=== PATIENT | male | born 1955 | race African-American/Black ===

== ENCOUNTER 2019-08-12 13:05 | Inpatient (IN) | payer MEDICAID ==
[~2019-08-12] VITALS: Ht 182.9 cm; Wt 101.6 kg
--- NOTE | 2019-08-12 13:10 | NUR ---
ED Nurse Note: Pt came into the ER from Home with a complaint of feeling dizzy and light headed. Patient states he was carrying groceries from the grocery store and started feeling the dizziness. Patient complains of a pain score of 10/10. Patient is AAOx4, vital signs are stable and patient is on room air. Patient placed on the cardiac monitors. CONRAD Davila is bedside.
--- NOTE | 2019-08-12 13:17 | NUR ---
ED Nurse Note: EKG done bedside.
--- NOTE | 2019-08-12 13:19 | NUR ---
ED Nurse Note: xray at bedside.
--- NOTE | 2019-08-12 13:31 | Emergency Room Report ---
History of Present Illness General Chief Complaint: Generalized Weakness Source: Patient Present Illness HPI 63-year-old male history of hypertension presents with generalized weakness, syncope and collapse, no known aggravating alleviating factors severity is moderate, constant lasting a few minutes, patient was at the store shopping, denies any chest pain shortness of breath, patient felt like a curtain was overlapping his eyes, he felt nauseated, he had a lie down, and passed out for a moment no fevers no chills no chest pain no shortness of breath no dyspnea on exertion patient presents for evaluation via EMS Allergies: Coded Allergies: No Known Allergies (Unverified , 08/12/19) Patient History Past Medical History: see triage record Reviewed Nursing Documentation: PMH: Agreed; PSxH: Agreed Nursing Documentation-PMH Past Medical History: No History, Except For Hx Cardiac Problems: Yes - high cholesterol Review of Systems All Other Systems: negative except mentioned in HPI Physical Exam Vital Signs Date Time Temp Pulse Resp B/P (MAP) Pulse Ox O2 Delivery O2 Flow Rate FiO2 08/12/19 13:01 110 16 102/78 (86) 99 Room Air Sp02 EP Interpretation: reviewed, normal General Appearance: well appearing, no apparent distress, alert Head: normocephalic, atraumatic Eyes: bilateral eye PERRL, bilateral eye EOMI ENT: uvula midline, dry mucus membranes Neck: supple, thyroid normal, supple/symm/no masses Respiratory: lungs clear, no respiratory distress, no retraction, no accessory muscle use Cardiovascular #1: normal peripheral pulses, regular rate, rhythm, no edema, no gallop, no murmur Gastrointestinal: non tender, soft, no guarding, no rebound Musculoskeletal: normal inspection Neurologic: alert, oriented x3 Psychiatric: mood/affect normal Skin: no rash, warm/dry Medical Decision Making Diagnostic Impression: Primary Impression: Episode of generalized weakness Additional Impressions: Syncope and collapse Dehydration ER Course 63-year-old male presents with syncope and collapse, differential diagnosis includes ACS, vasovagal syncope, pneumonia Chest x-ray negative, EKG negative, patient shows levels of dehydration Fluid hydration given, patient will be admitted to the hospital for syncope work -up Patient admitted to Dr. Wolf Laboratory Tests Test 08/12/19 13:20 White Blood Count 12.1 K/UL (4.8-10.8) H Red Blood Count 5.02 M/UL (4.70-6.10) Hemoglobin 15.2 G/DL (14.2-18.0) Hematocrit 46.0 % (42.0-52.0) Mean Corpuscular Volume 92 FL (80-99) Mean Corpuscular Hemoglobin 30.4 PG (27.0-31.0) Mean Corpuscular Hemoglobin Concent 33.1 G/DL (32.0-36.0) Red Cell Distribution Width 10.4 % (11.6-14.8) L Platelet Count 375 K/UL (150-450) Mean Platelet Volume 6.2 FL (6.5-10.1) L Neutrophils (%) (Auto) 78.8 % (45.0-75.0) H Lymphocytes (%) (Auto) 13.9 % (20.0-45.0) L Monocytes (%) (Auto) 6.4 % (1.0-10.0) Eosinophils (%) (Auto) 0.1 % (0.0-3.0) Basophils (%) (Auto) 0.8 % (0.0-2.0) Sodium Level 140 MMOL/L (136-145) Potassium Level 3.3 MMOL/L (3.5-5.1) L Chloride Level 101 MMOL/L (98-107) Carbon Dioxide Level 24 MMOL/L (21-32) Anion Gap 15 mmol/L (5-15) Blood Urea Nitrogen 10 mg/dL (7-18) Creatinine 2.0 MG/DL (0.55-1.30) H Estimate Glomerular Filtration Rate 41.0 mL/min (>60) Glucose Level 198 MG/DL (74-106) H Calcium Level 9.3 MG/DL (8.5-10.1) Phosphorus Level 2.7 MG/DL (2.5-4.9) Magnesium Level 2.2 MG/DL (1.8-2.4) Total Bilirubin 0.8 MG/DL (0.2-1.0) Aspartate Amino Transferase (AST) 17 U/L (15-37) Alanine Aminotransferase (ALT) 13 U/L (12-78) Alkaline Phosphatase 88 U/L (46-116) Creatine Kinase MB < 0.5 NG/ML (0.0-3.6) Troponin I 0.000 ng/mL (0.000-0.056) Pro-B-Type Natriuretic Peptide 45 pg/mL (0-125) Total Protein 8.3 G/DL (6.4-8.2) H Albumin 3.6 G/DL (3.4-5.0) Globulin 4.7 g/dL Albumin/Globulin Ratio 0.8 (1.0-2.7) L Lipase 81 U/L (73-393) EKG Diagnostic Results EKG Time: 13:15 EP Interpretation: NSR, rate 93, QTc 435, no acute ST elevations, normal axis Rhythm Strip Diag. Results Rhythm Strip Time: 13:18 EP Interpretation: yes Rate: 92 Rhythm: NSR, no PVC's, no ectopy Chest X-Ray Diagnostic Results Chest X-Ray Diagnostic Results : Chest X-Ray Ordered: Yes # of Views/Limited/Complete: 1 View Indication: Other - Syncope EP Interpretation: Yes Interpretation: no consolidation, no effusion, no pneumothorax, no acute cardiopulmonary disease Impression: No acute disease Electronically Signed by: Ronald Davila MD Last Vital Signs Date Time Temp Pulse Resp B/P (MAP) Pulse Ox O2 Delivery O2 Flow Rate FiO2 08/12/19 13:10 88 20 Room Air 08/12/19 13:01 102/78 (86) 99 Disposition: ADMITTED INPATIENT Condition: Stable Scripts No Active Prescriptions or Reported Meds Ronald Davila MD Aug 12, 2019 13:31
[2019-08-12 13:44] LABS: BASOPHILS % (AUTO) 0.8 % (0.0-2.0); EOSINOPHILS % (AUTO) 0.1 % (0.0-3.0); HEMOGLOBIN 15.2 G/DL (14.2-18.0); LYMPHOCYTES % (AUTO) 13.9 % (20.0-45.0); MEAN CORPUSCULAR VOLUME 92 FL (80-99); MONOCYTES % (AUTO) 6.4 % (1.0-10.0); NEUTROPHILS % (AUTO) 78.8 % (45.0-75.0); PLATELET COUNT 375 K/UL (150-450); RED BLOOD COUNT 5.02 M/UL (4.70-6.10); RED CELL DISTRIBUTION WIDTH 10.4 % (11.6-14.8); WHITE BLOOD COUNT 12.1 K/UL (4.8-10.8)
[2019-08-12 13:50] VITALS: BP 129/67
[2019-08-12 14:01] LABS: ANION GAP 15 mmol/L (5-15); BLOOD UREA NITROGEN 10 mg/dL (7-18); CALCIUM 9.3 MG/DL (8.5-10.1); CARBON DIOXIDE 24 MMOL/L (21-32); CHLORIDE 101 MMOL/L (98-107); POTASSIUM 3.3 MMOL/L (3.5-5.1); SODIUM 140 MMOL/L (136-145)
[2019-08-12 14:13] LABS: ALANINE AMINOTRANSFERASE 13 U/L (12-78); ALBUMIN 3.6 G/DL (3.4-5.0); ALBUMIN/GLOBULIN RATIO 0.8 (1.0-2.7); ALKALINE PHOSPHATASE 88 U/L (46-116); ASPARTATE AMINO TRANSFERASE 17 U/L (15-37); BILIRUBIN,TOTAL 0.8 MG/DL (0.2-1.0); CKMB < 0.5 NG/ML (0.0-3.6); PHOSPHORUS 2.7 MG/DL (2.5-4.9)
--- NOTE | 2019-08-12 14:26 | NUR ---
ED Nurse Note: Called Telemetry and spoke to Sunday DON and gave report for continuity of care.
[2019-08-12 15:20] VITALS: BP 139/68
--- NOTE | 2019-08-12 15:55 | NUR ---
ED Nurse Note: Patient transferred to telemetry with patient belongings. Patient Aox4, vital signs stable on room air no respiratory distress noted. endorsed to ARIAN Brand for continuity of care. Belongings list reviewed with patient and ARIAN Brand.
--- NOTE | 2019-08-12 16:28 | NUR ---
NURSE NOTES: REPORT RECEIVED FROM ARIAN WISE. PATIENT ARRIVED TO THE FLOOR AND PLACED ON SAMPLE EXAMINER. PATIENT VITALS STABLE, BP 130/57, 59ITH327, HR 90, TEMP 98.0 RESPIRATIONS 16. BELONGINGS LIST SIGNED BY PATIENT. PATIENT IS ALERT AND ORIENTED AND ABLE TO MAKE NEEDS KNOWN. IV SITES ARE CLEAN DRY AND INTACT, SALINE LOCKED. BED IN THE LOW AND LOCKED POSITION. PATIENT ORIENTED TO THE ROOM AND CALL LIGHT. WILL CONTINUE TO MONITOR.
--- NOTE | 2019-08-12 16:42 | History & Physical ---
History and Physical History & Physicial History and Physical HPI 63-year-old male history of hypertension presents with generalized weakness, syncope and collapse, no known aggravating alleviating factors severity is moderate, constant lasting a few minutes, patient was at the store shopping, denies any chest pain shortness of breath, he felt nauseated, he had a lie down , and passed out for a moment no fevers no chills no chest pain no shortness of breath no dyspnea on exertion. Note to be dehydrated in the ED Allergies: No Known Allergies (Unverified , 08/12/19) Past Medical History: Hypertension, Hyperlipidemia All Other Systems: negative except mentioned in HPI Physical Exam Vital Signs Noted Date Time Temp Pulse Resp B/P (MAP) Pulse Ox O2 Delivery O2 Flow Rate FiO2 08/12/19 13:01 110 16 102/78 (86) 99 Room Air General Appearance: well appearing, no apparent distress, alert Head: normocephalic, atraumatic Eyes: bilateral eye PERRL, bilateral eye EOMI ENT: uvula midline, dryish mucus membranes Neck: supple, thyroid normal, supple/symm/no masses Respiratory: lungs clear, no respiratory distress, no retraction, no accessory muscle use Cardiovascular: normal peripheral pulses, regular rate, HS1, HS2, normal,rhythm , no edema, no gallop, no murmur Gastrointestinal: non tender, soft, no guarding, no rebound Musculoskeletal: normal inspection Neurologic: alert, oriented x3 Psychiatric: mood/affect normal Skin: no rash, warm/dry Impression: Episode of generalized weakness Syncope and collapse, Chest x-ray negative, EKG negative Dehydration Hypertension Plan Cardiology Consult IVF Echocardiogram [employer] Medications Trend labs LE Dupplex VQ scan UA Laboratory Tests Test 08/12/19 13:20 White Blood Count 12.1 K/UL (4.8-10.8) H Red Blood Count 5.02 M/UL (4.70-6.10) Hemoglobin 15.2 G/DL (14.2-18.0) Hematocrit 46.0 % (42.0-52.0) Mean Corpuscular Volume 92 FL (80-99) Mean Corpuscular Hemoglobin 30.4 PG (27.0-31.0) Mean Corpuscular Hemoglobin Concent 33.1 G/DL (32.0-36.0) Red Cell Distribution Width 10.4 % (11.6-14.8) L Platelet Count 375 K/UL (150-450) Mean Platelet Volume 6.2 FL (6.5-10.1) L Neutrophils (%) (Auto) 78.8 % (45.0-75.0) H Lymphocytes (%) (Auto) 13.9 % (20.0-45.0) L Monocytes (%) (Auto) 6.4 % (1.0-10.0) Eosinophils (%) (Auto) 0.1 % (0.0-3.0) Basophils (%) (Auto) 0.8 % (0.0-2.0) Sodium Level 140 MMOL/L (136-145) Potassium Level 3.3 MMOL/L (3.5-5.1) L Chloride Level 101 MMOL/L (98-107) Carbon Dioxide Level 24 MMOL/L (21-32) Anion Gap 15 mmol/L (5-15) Blood Urea Nitrogen 10 mg/dL (7-18) Creatinine 2.0 MG/DL (0.55-1.30) H Estimate Glomerular Filtration Rate 41.0 mL/min (>60) Glucose Level 198 MG/DL (74-106) H Calcium Level 9.3 MG/DL (8.5-10.1) Phosphorus Level 2.7 MG/DL (2.5-4.9) Magnesium Level 2.2 MG/DL (1.8-2.4) Total Bilirubin 0.8 MG/DL (0.2-1.0) Aspartate Amino Transferase (AST) 17 U/L (15-37) Alanine Aminotransferase (ALT) 13 U/L (12-78) Alkaline Phosphatase 88 U/L (46-116) Creatine Kinase MB < 0.5 NG/ML (0.0-3.6) Troponin I 0.000 ng/mL (0.000-0.056) Pro-B-Type Natriuretic Peptide 45 pg/mL (0-125) Total Protein 8.3 G/DL (6.4-8.2) H Albumin 3.6 G/DL (3.4-5.0) Globulin 4.7 g/dL Albumin/Globulin Ratio 0.8 (1.0-2.7) L Lipase 81 U/L (73-393) EKG: NSR, rate 93, QTc 435, no acute ST elevations, normal axis Chest X-Ray: no consolidation, no effusion, no pneumothorax, no acute cardiopulmonary disease David Farias MD Aug 12, 2019 16:42
[2019-08-12] MEDS ORDERED: HydrALAZINE 25mg tab ORAL PRN (16:45)
[2019-08-12] MEDS ORDERED: Nitroglycerin Subl 0.4mg tab SL PRN (16:45)
[2019-08-12] MEDS ORDERED: Albuterol/Ipratropium 3ml neb HHN PRN (18:45)
--- NOTE | 2019-08-12 19:33 | NUR ---
HAND-OFF: Report given to ARIAN HUGHES.
--- NOTE | 2019-08-12 19:34 | NUR ---
NURSE NOTES: PATIENT IS ALERT AND ORIENTED AND ABLE TO MAKE NEEDS KNOWN. IV SITE is CLEAN DRY AND INTACT, SALINE LOCKED. BED IN THE LOW AND LOCKED POSITION. CALL LIGHT within reach. WILL CONTINUE TO MONITOR.
[2019-08-12 20:00] VITALS: BP 136/80
[2019-08-12] MEDS: Heparin 5000 units/ml inj SUBQ SCH (21:55)
--- NOTE | 2019-08-12 22:17 | Diagnostic Imaging Report ---
Indication: Chest pain Technique: A ventilation/perfusion scan was performed. Ventilation was performed utilizing 40 mCi of Technetium 99m-DTPA. Perfusion was performed with 5 mCi of technetium 99m-MAA injected intravenously. Multiple side by side projections obtained. Findings: Ventilation is mildly heterogeneous. No significant defects are identified. Perfusion is mildly heterogeneous. No significant defects are identified. No mismatched defects seen. Impression: Low probability for pulmonary embolus Interpretation of findings are based on PIOPED II marisa (2006).
[2019-08-12 22:25] LABS: APPEARANCE,URINE CLEAR; BILIRUBIN, URINE NEGATIVE (NEGATIVE); GLUCOSE, URINE (UA) NEGATIVE (NEGATIVE); KETONES,URINE 3+ (NEGATIVE); LEUKOCYTE ESTERASE ,URINE NEGATIVE (NEGATIVE); NITRITE,URINE NEGATIVE (NEGATIVE); PH,URINE 6 (4.5-8.0); PROTEIN,URINE 1+ (NEGATIVE); UROBILINOGEN,URINE 4 MG/DL (0.0-1.0)
[2019-08-12 22:31] LABS: COLOR,URINE BROWN
--- NOTE | 2019-08-12 23:45 | Consultation ---
DATE OF CONSULTATION: 08/12/2019 CARDIOLOGY CONSULTATION CONSULTING PHYSICIAN: David Mai M.D. REASON FOR CONSULTATION: Syncope. HISTORY OF PRESENT ILLNESS: This 63-year-old male presented to the emergency room with weakness and as described syncopal episode. He has been weak and lightheaded. He was apparently shopping at a store when this happened. He suddenly felt nauseated, had to lie down and momentarily passed out. He did not fall or hurt himself. When he awakened, he did not have any associated findings, memory loss or confusion. He was transferred to the emergency room and was admitted to the hospital for further evaluation. PAST MEDICAL HISTORY: Hypertension and hyperlipidemia. ALLERGIES: None. FAMILY HISTORY: Noncontributory. SOCIAL HISTORY: Negative for smoking or alcohol use. REVIEW OF SYSTEMS: Otherwise unremarkable. PHYSICAL EXAMINATION: VITAL SIGNS: Blood pressure 102/78, pulse 110, respirations 16. HEENT: Conjunctivae pink. Fundi benign. Oropharynx clear. Mucous membranes dry. NECK: Supple. LUNGS: Clear. CARDIAC: Regular. Normal S1, S2 with no murmur, rub, or gallop. ABDOMEN: Soft. EXTREMITIES: No edema. LABORATORY DATA: White count 12, hemoglobin 15. Sodium 140, potassium 3.3, bicarb 24, BUN 10, creatinine 2.0. Glucose 198. Albumin 3.6. EKG, sinus rhythm with no acute abnormalities. Chest x-ray with no acute process. IMPRESSION: 1. Orthostatic syncope. 2. Hypokalemia. 3. Hypovolemia. 4. Elevated creatinine, consider acute versus acute on chronic kidney disease. 5. Hyperglycemia, consider diabetes mellitus. PLAN: 1. Cardiac monitoring. 2. Hydration. 3. Echocardiogram. 4. Hemoglobin A1c level. 5. Thyroid panel. 6. Monitor orthostatics. 7. Follow up renal function. 8. Follow up troponin level. David Mai M.D. DR: NOBLE JOB#: [id number] CC:
[2019-08-13 00:27] VITALS: BP 135/84
[2019-08-13 04:00] VITALS: BP 127/71
--- NOTE | 2019-08-13 07:09 | NUR ---
HAND-OFF: Report given to ARIAN Mcdowell.
[2019-08-13 07:26] LABS: BASOPHILS % (AUTO) 0.6 % (0.0-2.0); EOSINOPHILS % (AUTO) 0.2 % (0.0-3.0); HEMATOCRIT 35.6 % (42.0-52.0); LYMPHOCYTES % (AUTO) 17.4 % (20.0-45.0); MEAN CORPUSCULAR VOLUME 93 FL (80-99); MONOCYTES % (AUTO) 7.3 % (1.0-10.0); NEUTROPHILS % (AUTO) 74.5 % (45.0-75.0); PLATELET COUNT 292 K/UL (150-450); RED BLOOD COUNT 3.84 M/UL (4.70-6.10); RED CELL DISTRIBUTION WIDTH 10.7 % (11.6-14.8); WHITE BLOOD COUNT 8.9 K/UL (4.8-10.8)
--- NOTE | 2019-08-13 07:41 | NUR ---
NURSE NOTES: Patient received from Dahlia. Patient stable eating breakfast in bed. No complaints of pain no s/sx of distress. RR even and unlabored on RA. Side rails up x2, call light within reach, bed low and locked. Will continue to monitor.
[2019-08-13 08:00] VITALS: BP 135/79
[2019-08-13 08:18] LABS: ANION GAP 10 mmol/L (5-15); BLOOD UREA NITROGEN 5 mg/dL (7-18); CALCIUM 8.2 MG/DL (8.5-10.1); CARBON DIOXIDE 23 MMOL/L (21-32); CHLORIDE 107 MMOL/L (98-107); CREATININE 1.1 MG/DL (0.55-1.30); POTASSIUM 3.4 MMOL/L (3.5-5.1); SODIUM 140 MMOL/L (136-145)
[2019-08-13 08:24] LABS: ALANINE AMINOTRANSFERASE 11 U/L (12-78); ALBUMIN 2.8 G/DL (3.4-5.0); ASPARTATE AMINO TRANSFERASE 12 U/L (15-37); BILIRUBIN,DIRECT 0.1 MG/DL (0.0-0.3); BILIRUBIN,TOTAL 0.5 MG/DL (0.2-1.0)
--- NOTE | 2019-08-13 08:39 | General Progress Note ---
Assessment/Plan Assessment/Plan: Impression: Episode of generalized weakness Syncope and collapse, Chest x-ray negative, EKG negative Dehydration Hypertension VQ negative Plan Cardiology Consult hydrate Echocardiogram monitor labs await clearance impression, plan, and exam edited and reviewed in detail care discussed with RN Subjective Allergies: Coded Allergies: PENICILLINS (Verified Allergy, Unknown, 08/12/19) PER PATIENT STATEMENT Pork (Verified Allergy, Unknown, 08/12/19) PER PATIENT STATEMENT SHELLFISH DERIVED (Verified Allergy, Unknown, 08/12/19) PER PATIENT STATEMENT [id number] REDUCTASE INHIBITOR (Verified Allergy, Unknown, 08/12/19) PER PATIENT STATEMENT Subjective no cp or sob care reviewed overnight Objective Last 24 Hour Vital Signs Date Time Temp Pulse Resp B/P (MAP) Pulse Ox O2 Delivery O2 Flow Rate FiO2 08/13/19 08:24 88 18 97 Room Air 21 08/13/19 08:03 Room Air 08/13/19 08:00 99.0 91 20 135/79 (97) 97 08/13/19 04:00 98.7 84 17 127/71 (89) 98 08/13/19 04:00 79 08/13/19 00:27 98.2 88 18 135/84 (101) 97 08/13/19 00:00 84 08/12/19 21:00 Room Air 08/12/19 20:00 79 08/12/19 20:00 98.4 90 17 136/80 (98) 97 08/12/19 18:28 Room Air 08/12/19 15:55 97.8 78 20 139/68 100 Room Air 08/12/19 15:20 97.8 73 22 139/68 100 Room Air 08/12/19 13:50 97.2 78 18 129/67 100 Room Air 08/12/19 13:10 88 20 Room Air 08/12/19 13:01 110 16 102/78 (86) 99 Room Air Intake and Output 08/12/19 08/13/19 18:59 06:59 Intake Total 2000 ml 360 ml Balance 2000 ml 360 ml Intake Oral 360 ml IV Total 2000 ml # Voids 1 4 # Bowel Movements 1 Laboratory Tests 08/12/19 13:20: White Blood Count 12.1H, Red Blood Count 5.02, Hemoglobin 15.2, Hematocrit 46.0 , Mean Corpuscular Volume 92, Mean Corpuscular Hemoglobin 30.4, Mean Corpuscular Hemoglobin Concent 33.1, Red Cell Distribution Width 10.4L, Platelet Count 375, Mean Platelet Volume 6.2L, Neutrophils (%) (Auto) 78.8H, Lymphocytes (%) (Auto) 13.9L, Monocytes (%) (Auto) 6.4, Eosinophils (%) (Auto) 0.1, Basophils (%) (Auto) 0.8, Sodium Level 140, Potassium Level 3.3L, Chloride Level 101, Carbon Dioxide Level 24, Anion Gap 15, Blood Urea Nitrogen 10, Creatinine 2.0H, Estimat Glomerular Filtration Rate 41.0, Glucose Level 198H, Calcium Level 9.3, Phosphorus Level 2.7, Magnesium Level 2.2, Total Bilirubin 0.8, Aspartate Amino Transf (AST/SGOT) 17, Alanine Aminotransferase (ALT/SGPT) 13, Alkaline Phosphatase 88, Creatine Kinase MB < 0.5, Troponin I 0.000, Pro-B- Type Natriuretic Peptide 45, Total Protein 8.3H, Albumin 3.6, Globulin 4.7, Albumin/Globulin Ratio 0.8L, Lipase 81 08/12/19 19:30: Troponin I 0.000 08/12/19 21:20: Urine Color Brown, Urine Appearance Clear, Urine pH 6, Urine Specific [place] 1.010, Urine Protein 1+H, Urine Glucose (UA) Negative, Urine Ketones 3+H, Urine Blood 1+H, Urine Nitrite Negative, Urine Bilirubin Negative, Urine Urobilinogen 4H, Urine Leukocyte Esterase Negative, Urine RBC 2-4H, Urine WBC 0-2, Urine Squamous Epithelial Cells None, Urine Bacteria Few, Urine Fine Granular Casts 0- 2H 08/13/19 06:08: White Blood Count 8.9, Red Blood Count 3.84L, Hemoglobin 12.0L, Hematocrit 35.6L , Mean Corpuscular Volume 93, Mean Corpuscular Hemoglobin 31.3H, Mean Corpuscular Hemoglobin Concent 33.8, Red Cell Distribution Width 10.7L, Platelet Count 292, Mean Platelet Volume 5.9L, Neutrophils (%) (Auto) 74.5, Lymphocytes (%) (Auto) 17.4L, Monocytes (%) (Auto) 7.3, Eosinophils (%) (Auto) 0.2, Basophils (%) (Auto) 0.6, Sodium Level 140, Potassium Level 3.4L, Chloride Level 107, Carbon Dioxide Level 23, Anion Gap 10, Blood Urea Nitrogen 5L, Creatinine 1.1, Estimat Glomerular Filtration Rate > 60, Glucose Level 94#, Calcium Level 8.2L, Total Bilirubin 0.5, Aspartate Amino Transf (AST/SGOT) 12L, Alanine Aminotransferase (ALT/SGPT) 11L, Alkaline Phosphatase [Pending], Troponin I 0.009, Total Protein 6.1L, Albumin 2.8L, Direct Bilirubin 0.1, Thyroid Stimulating Hormone (TSH) 0.896 Height (Feet): 6 Weight (Pounds): 224 Objective WDWN NAD clear breath sounds bilaterally without rhonchi or wheeze [id number] without MRG NABS nontender no HSM no CCE nonfocal Jamie Wolf MD Aug 13, 2019 08:39
[2019-08-13] MEDS: Heparin 5000 units/ml inj SUBQ SCH ×2 (08:40→20:51)
[2019-08-13] MEDS ORDERED: Aspirin Baby 81mg ORAL SCH (09:00)
[2019-08-13 09:01] LABS: ALKALINE PHOSPHATASE 67 U/L (46-116)
[2019-08-13 12:00] VITALS: BP 108/55
[2019-08-13 12:46] LABS: BILIRUBIN, URINE NEGATIVE (NEGATIVE); COLOR,URINE PALE YELLOW; GLUCOSE, URINE (UA) NEGATIVE (NEGATIVE); KETONES,URINE 2+ (NEGATIVE); LEUKOCYTE ESTERASE ,URINE NEGATIVE (NEGATIVE); NITRITE,URINE NEGATIVE (NEGATIVE); PH,URINE 6.5 (4.5-8.0); PROTEIN,URINE NEGATIVE (NEGATIVE); UROBILINOGEN,URINE NORMAL MG/DL (0.0-1.0)
--- NOTE | 2019-08-13 12:47 | Diagnostic Imaging Report ---
Indication: Dyspnea Comparison: None A single view chest radiograph was obtained. Findings: Cardiomediastinal appearance is within normal limits for age. The lungs are clear. Pulmonary vascularity is appropriate. The diaphragmatic contour is smooth and costophrenic angles are sharp. No pleural effusions are identified. The bones are unremarkable. Impression: No acute findings
--- NOTE | 2019-08-13 12:48 | Cardiology Report ---
APPROVED REPORT EXAM: Two-dimensional and M-mode echocardiogram with Doppler and color Doppler. INDICATION Syncope M-Mode DIMENSIONS IVSd1.1 (0.7-1.1cm)Left Atrium (MM)4.0 (1.6-4.0cm) LVDd4.5 (3.5-5.6cm)Aortic Root3.2 (2.0-3.7cm) PWd1.1 (0.7-1.1cm)Aortic Cusp Exc.2.0 (1.5-2.0cm) LVDs2.6 (2.5-4.0cm) PWs1.8 cm Normal left ventricular chamber size, hyperdynamic systolic function and wall motion. Left ventricular ejection fraction estimated to be 70-75 %. Anterior Echo-free space, may be due to pericardial fat or effusion. All other cardiac chamber sizes are within normal limits. Focal aortic valve sclerosis with adequate cusp excursion. Thickened mitral valve leaflets with normal excursion. Mitral annulus and aortic root calcification. Normal pulmonic valve structure. Normal tricuspid valve structure. IVC at normal size with physiologic collapse. A color flow and spectral Doppler study was performed and revealed: Trace mitral regurgitation. Mitral diastolic velocities suggest reduced left ventricular relaxation c/w mild LV diastolic dysfunction (Grade I). Trace tricuspid regurgitation. Tricuspid systolic velocities suggests peak right ventricular systolic pressure of 12 mmHg.
[2019-08-13 12:56] LABS: APPEARANCE,URINE CLEAR
[2019-08-13] MEDS ORDERED: NS w/KCl 20mEq 1000ml 1,000 ML IV SCH (14:00)
[2019-08-13] MEDS ORDERED: Albuterol/Ipratropium 3ml neb HHN PRN (15:00)
[2019-08-13] MEDS ORDERED: HydrALAZINE 25mg tab ORAL PRN (15:00)
[2019-08-13] MEDS: NS w/KCl 20mEq 1000ml 1,000 ML IV SCH (15:00)
--- NOTE | 2019-08-13 15:02 | NUR ---
HAND-OFF: Report given to Sommer DON. Patient stable. No complaints at this time and no s/sx of distress. Taken off manager monitoring. All belongings checked and with patient.
[2019-08-13] MEDS ORDERED: Nitroglycerin Subl 0.4mg tab SL PRN (15:05)
--- NOTE | 2019-08-13 15:20 | NUR ---
NURSE NOTES: Pt arrived from tele breathing room air, admitted for syncope. No complaints of dizziness. Has his belongings at bedside. Able to verbalize needs call light in reach.
--- NOTE | 2019-08-13 16:02 | NUR ---
CASE MANAGEMENT:REVIEW 63 YR OLD MALE BIBA CC; WEAKNESS AND HYPOTENSION SI: SYNCOPE W/COLLAPSE. DEHYDRATION 97.2 110 16 102/78 99% ON RA WBC+12.1 CR+2.0 IS: 1L NS BOLUS X2 CXR : TO TELEMETRY PLAN: CARDIAC CONSULT CALLED
--- NOTE | 2019-08-13 16:45 | Progress Note ---
DATE: 08/13/2019 CARDIOLOGY PROGRESS NOTE SUBJECTIVE: The patient has no dizziness. Monitored rhythm sinus with no ectopy. No loss of consciousness noted. Echocardiogram reviewed, normal ejection fraction, no valvular disease noted. OBJECTIVE: VITAL SIGNS: Blood pressure 135/79, pulse 88, respirations 20, afebrile. LUNGS: Clear. CARDIAC: Regular. Normal S1, S2 with no murmur. ABDOMEN: Soft, nontender. EXTREMITIES: No edema. LABORATORY DATA: White count 8.9, hemoglobin 12. Urinalysis with 2 to 4 red cells and 0 to 2 white cells. BUN, creatinine have normalized /1.1 with potassium 3.4 and albumin 3.8. IMPRESSION: 1. Hypovolemic and orthostatic syncope. 2. Acute renal failure, resolved. 3. Moderate protein-calorie malnutrition. 4. Microscopic hematuria. 5. Hypokalemia. PLAN: 1. Decrease intravenous fluid. 2. Recheck urinalysis. 3. Mobilize, replace potassium. 4. No additional cardiovascular workup planned. 5. Avoid tight blood pressure control in this clinical setting. David Mai M.D. DR: KRISTIN JOB#: [id number] CC:
--- NOTE | 2019-08-13 19:17 | Cardiology Report ---
APPROVED REPORT EKG Measurement Heart [id number] Normal sinus rhythm Normal ECG
--- NOTE | 2019-08-13 19:46 | NUR ---
HAND-OFF: Report given Laura DON informed that pt received from tele aox.4 , no signs of distress, or pain since tranfer. IV fluids running no signs of infiltration to site.
--- NOTE | 2019-08-13 19:50 | NUR ---
NURSE NOTES: Received patient awake in bed, just finished dinner, no s/s of acute distress, no c/o pain at this time. IV access patent, dressing dry and intact. Patient alert and able to make needs knows. Bed low and locked, 2 side rails up, patient wearing non slip socks.
--- NOTE | 2019-08-13 19:50 | NUR ---
HAND-OFF: Report given to [].
[2019-08-13 20:00] VITALS: BP 122/77
[2019-08-14] MEDS: NS w/KCl 20mEq 1000ml 1,000 ML IV SCH (05:37)
[2019-08-14 06:12] LABS: BASOPHILS % (AUTO) 1.1 % (0.0-2.0); EOSINOPHILS % (AUTO) 1.2 % (0.0-3.0); HEMOGLOBIN 11.7 G/DL (14.2-18.0); LYMPHOCYTES % (AUTO) 28.6 % (20.0-45.0); MEAN CORPUSCULAR VOLUME 93 FL (80-99); MONOCYTES % (AUTO) 9.8 % (1.0-10.0); NEUTROPHILS % (AUTO) 59.2 % (45.0-75.0); PLATELET COUNT 290 K/UL (150-450); RED BLOOD COUNT 3.75 M/UL (4.70-6.10); RED CELL DISTRIBUTION WIDTH 10.7 % (11.6-14.8); WHITE BLOOD COUNT 6.3 K/UL (4.8-10.8)
[2019-08-14 06:39] LABS: ANION GAP 9 mmol/L (5-15); BLOOD UREA NITROGEN 5 mg/dL (7-18); CALCIUM 8.2 MG/DL (8.5-10.1); CARBON DIOXIDE 25 MMOL/L (21-32); CHLORIDE 111 MMOL/L (98-107); POTASSIUM 3.9 MMOL/L (3.5-5.1); SODIUM 145 MMOL/L (136-145)
--- NOTE | 2019-08-14 07:14 | NUR ---
HAND-OFF: Report given to ARIAN Novoa.
--- NOTE | 2019-08-14 07:48 | NUR ---
NURSE NOTES: Pt received eating breakfast , no concerns verbalized at this time. Call light in reach
[2019-08-14] MEDS ORDERED: Aspirin Baby 81mg ORAL SCH (09:00)
[2019-08-14 09:06] VITALS: BP 140/83
[2019-08-14] MEDS: Heparin 5000 units/ml inj SUBQ SCH (09:08)
--- NOTE | 2019-08-14 09:19 | General Progress Note ---
Assessment/Plan Assessment/Plan: Impression: Episode of generalized weakness Syncope and collapse, Chest x-ray negative, EKG negative Dehydration Hypertension VQ negative Plan Cardiology Consult and clearance noted dc to home no antihypertensives impression, plan, and exam edited and reviewed in detail care discussed with RN Subjective Allergies: Coded Allergies: PENICILLINS (Verified Allergy, Unknown, 08/12/19) PER PATIENT STATEMENT Pork (Verified Allergy, Unknown, 08/12/19) PER PATIENT STATEMENT SHELLFISH DERIVED (Verified Allergy, Unknown, 08/12/19) PER PATIENT STATEMENT [id number] REDUCTASE INHIBITOR (Verified Allergy, Unknown, 08/12/19) PER PATIENT STATEMENT Subjective no cp or sob care reviewed overnight Objective Last 24 Hour Vital Signs Date Time Temp Pulse Resp B/P (MAP) Pulse Ox O2 Delivery O2 Flow Rate FiO2 08/14/19 09:06 80 140/83 08/13/19 21:40 Room Air 08/13/19 20:00 98.7 75 20 122/77 (92) 97 08/13/19 12:00 75 08/13/19 12:00 80 20 108/55 (72) 99 Intake and Output 08/13/19 08/14/19 19:00 07:00 Intake Total 2085 ml 350 ml Balance 2085 ml 350 ml Intake Oral 960 ml 350 ml IV Total 1125 ml # Voids 2 # Bowel Movements 2 Laboratory Tests 08/13/19 12:26: Urine Color Pale yellow, Urine Appearance Clear, Urine pH 6.5, Urine Specific [place] 1.005, Urine Protein Negative, Urine Glucose (UA) Negative, Urine Ketones 2+H, Urine Blood Negative, Urine Nitrite Negative, Urine Bilirubin Negative, Urine Urobilinogen Normal, Urine Leukocyte Esterase Negative 08/14/19 05:30: White Blood Count 6.3, Red Blood Count 3.75L, Hemoglobin 11.7L, Hematocrit 35.0L , Mean Corpuscular Volume 93, Mean Corpuscular Hemoglobin 31.1H, Mean Corpuscular Hemoglobin Concent 33.4, Red Cell Distribution Width 10.7L, Platelet Count 290, Mean Platelet Volume 6.2L, Neutrophils (%) (Auto) 59.2, Lymphocytes (%) (Auto) 28.6, Monocytes (%) (Auto) 9.8, Eosinophils (%) (Auto) 1.2, Basophils (%) (Auto) 1.1, Sodium Level 145, Potassium Level 3.9, Chloride Level 111H, Carbon Dioxide Level 25, Anion Gap 9, Blood Urea Nitrogen 5L, Creatinine 1.0, Estimat Glomerular Filtration Rate > 60, Glucose Level 93, Calcium Level 8.2L Height (Feet): 6 Weight (Pounds): 224 Objective WDWN NAD clear breath sounds bilaterally without rhonchi or wheeze [id number] without MRG NABS nontender no HSM no CCE nonfocal Jamie Wolf MD Aug 14, 2019 09:19
--- NOTE | 2019-08-14 11:30 | NUR ---
NURSE NOTES: Orders in place to discharge pt , home . Pt encouraged to follow up with his his primary Dr to evaluate syncope episode.
--- NOTE | 2019-08-14 13:30 | NUR ---
NURSE NOTES: Pt discharged provided with change of clothing at taxi voucher. Does not have any family member to contact in regards to discharge : I live by myself, an see for myself. Influenza vaccine offered and given, denies having an Allergy to eggs, IV removed. Belongings retrieved from safe which included wallet , rodríguez , multiple cards, and groceries.
--- NOTE | 2019-08-14 13:32 | NUR ---
NURSE NOTES: Provided with discharged information for syncope, and encouraged him to visit his Dr for further evaluation of syncope and blood pressure monitoring. Gait is stable, no further episode during stay on this floor. Stable condition
--- NOTE | 2019-08-14 23:00 | Progress Note ---
DATE: 08/14/2019 CARDIOLOGY PROGRESS NOTE SUBJECTIVE: The patient has no dizziness today. No palpitations, chest pain, or shortness of breath. Monitored rhythm, sinus. No ectopy. OBJECTIVE: VITAL SIGNS: Blood pressure 122/77, pulse 75, respirations 20. LUNGS: Clear. CARDIAC: Regular. ABDOMEN: Soft. EXTREMITIES: No edema. LABORATORY DATA: BUN is 5, creatinine 1. Potassium 3.9. Albumin 2.8. IMPRESSION: 1. Hypovolemic and orthostatic syncope. 2. Acute renal failure, resolved. 3. Dehydration and hypovolemia, corrected. 4. Hypokalemia, corrected. 5. No signs of structural heart disease based on echocardiogram. PLAN: 1. Discontinue IV fluids. 2. Stable for outpatient management. 3. No additional cardiovascular workup presently planned. David Mai M.D. DR: KRISTIN JOB#: [id number] CC:
--- NOTE | 2019-08-15 08:31 | Discharge Summary ---
Discharge Summary Discharge Summary _ DATE OF ADMISSION: 08/12/2019 DATE OF DISCHARGE: 08/14/2019 DISCHARGED BY: Dr. Wolf REASON FOR ADMISSION: 63 years old male with past medical history of hypertension, high cholesterol, presented to emergency department for evaluation due to episode of generalized weakness with syncope , lasted few minutes. Patient apparently was shopping at the store when it happened. He felt nauseated. He reported that he passed out for a moment. He denied chest pain or shortness of breath. No fever or chills Upon evaluation in emergency department patient was tachycardic with heart rate 110 , otherwise vital signs were stable. Laboratory work-up revealed mild leukocytosis WBC 12.1, stable hemoglobin , hematocrit and platelet count. Potassium 3.3 , otherwise stable electrolytes . BUN 10 creatinine 2.0 . Glucose 198. Stable LFT and lipase. Troponin negative, pro BNP 45. EKG revealed sinus rhythm , no acute ischemic changes . Chest x-ray revealed no acute cardiopulmonary pathology. Urinalysis revealed +1 protein, +3 ketones, no evidence of urinary tract infection. Patient received fluid hydration and admitted to monitored floor for syncopal work-up. CONSULTANTS: yard general car supervisor Dr. Mai [facility]SE: Patient admitted to monitored floor and started on the IV fluids. Cardiology consult was requested. VQ scan revealed low probability of pulmonary emboli. Venous duplex bilateral lower extremity revealed no evidence of acute DVT. Serial troponin was negative. EKG revealed no acute ischemic changes , telemetry was negative. Patient was ruled out for acute [place]. Echocardiogram demonstrated preserved ejection fraction 60 to 70 to 75%. No evidence of wall motion abnormality. Right ventricular systolic pressure of 12. Blood pressure was managed with calcium channel gail, and remained stable Antiplatelet therapy with aspirin continued. DVT prophylaxis provided. Supplemental oxygen was on board as needed to keep pulse oximetry above 92%. Pulse oximetry remained stable on room air. Renal parameters and electrolytes were closely monitored. With IV hydration creatinine from 2.0 down to 1.0. Patient remained in sinus rhythm on monitor. No evidence of arrhythmia. Potassium was replaced. TSH was within normal limits. Glucose stabilized. Per yard general car supervisor no signs of structural heart disease , based on echocardiogram. Per yard general car supervisor, syncope was hypovolemic and orthostatic. Patient clinically stabilized and was ready for outpatient management. IV fluids were discontinued. No additional cardiovascular work-up was planned. Patient was discharged home. Influenza vaccine was given prior upon discharge FINAL DIAGNOSES: Hypovolemic and orthostatic syncope Dehydration and hypovolemia Acute renal failure -resolved Hypokalemia-corrected Hypertension Episode of generalized weakness DISCHARGE MEDICATIONS: List of medication was sent with patient DISCHARGE INSTRUCTIONS: Patient was discharged home. Follow-up with primary care provider in 1 week. I have been assigned to dictate discharge summary for this account. I was not involved in the patient's management. Alda Botello NP Aug 15, 2019 08:31
--- NOTE | 2019-08-15 10:17 | Diagnostic Imaging Report ---
APPROVED REPORT CPT Code: 86100 Present Symptoms Comments: Screening BILATERAL: Imaging reveals a patent deep venous system bilaterally. There is no evidence of thrombus within the femoral, popliteal or tibial segments. The greater saphenous veins are also within normal limits. Doppler indicates normal spontaneous flow within these segments.
== END 2019-08-14 13:30 | disposition home or self-care (01) | DRG 422 ==
LOC: EDBD 13:05 → EMR 14:27 → 2E 14:45 → EDBEDREQ 15:42 → 3E 08-13 15:00
DX: E86.0 Dehydration (principal); E87.6 Hypokalemia; E44.0 Moderate protein-calorie malnutrition; N17.9 Acute kidney failure, unspecified; I10 Essential (primary) hypertension; I95.1 Orthostatic hypotension; E86.1 Hypovolemia; R73.9 Hyperglycemia, unspecified; R31.29 Other microscopic hematuria; Z88.0 Allergy status to penicillin; Z88.8 Allergy status to other drugs, medicaments and biological substances
CPT/HCPCS: 36415; 71045; 78579; 78580; 80048; 80053; 80076; 81001; 81003; 82553; 83690; 83735; 83880; 84100; 84443; 84484; 85025; 87086; 90689; 93005; 93306; 93970; 94664; 96360; 99285; A9503; J8499